=== PATIENT | male | born 1970 ===

== ENCOUNTER 2023-04-04 05:58 | Day surgery (SDC) | payer OTHER | END 2023-04-04 10:25 | disposition home or self-care (01) | LOC: AMB-ENDOS 05:58 | PROVIDERS: ATTEND Colon & Rectal Surgery | DX: D12.5 Benign neoplasm of sigmoid colon (principal); K64.8 Other hemorrhoids; R19.5 Other fecal abnormalities; Z20.822 Contact with and (suspected) exposure to COVID-19 ==